=== PATIENT | male | born 1970 | race Caucasian/White ===

== ENCOUNTER 2016-04-11 16:20 | Emergency (ER) | payer OTHER ==
[~2016-04-11] VITALS: Ht 182.9 cm; Wt 86.5 kg
[2016-04-11 16:22] VITALS: BP 124/83; PULSE 66; RESP 20; TEMP 97.8; O2SAT 98
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
[2016-04-11] MEDS ORDERED: EXTR500C PO (18:36)
[2016-04-11] MEDS ORDERED: IBUP-232 PO (18:36)
== END 2016-04-11 18:47 | disposition home or self-care (01) ==
LOC: NEPB 16:20
DX: S20.212A Contusion of left front wall of thorax, initial encounter (principal); V02.99XA Pedestrian with other conveyance injured in collision with two- or three-wheeled motor vehicle, unspecified whether traffic or nontraffic accident, initial encounter
CPT/HCPCS: 71101; 99283